=== PATIENT | female | born 1985 | race Caucasian/White ===

== ENCOUNTER 2019-04-13 23:08 | Emergency (ER) | payer SELFPAY ==
[~2019-04-13] VITALS: Ht 160 cm; Wt 45.8 kg
--- NOTE | 2019-04-13 23:45 | NUR ---
Pt. ambulated into ED accompanied by male indirect fire infantryman w/ c/o R ankle pain, states she slipped on a piece of paer x 4 days ago w/ worsening pain and inflammation x 1 day, pt. favoring L leg, A/Ox4,
--- NOTE | 2019-04-13 23:50 | NUR ---
Pt. up to use restroom, favors L leg, urine specimen collected and sent to lab,
[2019-04-14 00:02] LABS: *URINE HCG, QUAL NEGATIVE (NEGATIVE)
--- NOTE | 2019-04-14 00:08 | NUR ---
arcade game technician. at bedside,
[2019-04-14] MEDS ORDERED: KETOROLAC TROMETHAMINE 60 MG INJ IM ONE (00:21)
[2019-04-14] MEDS ORDERED: KETOROLAC TROMETHAMINE 30 MG INJ IM ONE (00:30)
--- NOTE | 2019-04-14 00:38 | NUR ---
Patient discharged to home in stable conditon. Written and verbal after care instructions given. Patient verbalizes understanding of instructions. Pt. d/c w/ prescription per MD order, d/c papers signed, all belongings w/ pt., ID band removed, ambulated off unit w/ assistance from male technical planner, NAD
== END 2019-04-14 00:45 | disposition home or self-care (01) ==
LOC: ER 23:08
DX: S93.401A Sprain of unspecified ligament of right ankle, initial encounter (principal); F12.10 Cannabis abuse, uncomplicated; F17.200 Nicotine dependence, unspecified, uncomplicated; Z88.8 Allergy status to other drugs, medicaments and biological substances; X50.1XXA Overexertion from prolonged static or awkward postures, initial encounter; Y93.89 Activity, other specified; Y92.89 Other specified places as the place of occurrence of the external cause; Y99.8 Other external cause status
CPT/HCPCS: 73610; 73630; 84703; 96372; 99283; J1885; A4663